=== PATIENT | male | born 1990 | race African-American/Black ===

== ENCOUNTER 2019-01-25 08:35 | Emergency (ER) | payer BC, SELFPAY ==
[2019-01-25] MEDS ORDERED: Ibuprofen 800 MG TAB ONE (09:18)
== END 2019-01-25 09:23 | disposition home or self-care (01) ==
LOC: ERS 08:35
DX: H66.42 Suppurative otitis media, unspecified, left ear (principal); J45.909 Unspecified asthma, uncomplicated; F17.210 Nicotine dependence, cigarettes, uncomplicated
CPT/HCPCS: 99282

== ENCOUNTER 2019-08-07 15:46 | Emergency (ER) | payer BC ==
[2019-08-07] MEDS ORDERED: Amoxicillin/Potassium Clav 875 MG TAB ONE ×2 (16:21→16:22)
== END 2019-08-07 16:28 | disposition home or self-care (01) ==
LOC: ERS 15:46
DX: H66.42 Suppurative otitis media, unspecified, left ear (principal); J45.909 Unspecified asthma, uncomplicated; F17.210 Nicotine dependence, cigarettes, uncomplicated
CPT/HCPCS: 99282

== ENCOUNTER 2020-02-13 11:55 | Emergency (ER) | payer BC | END 2020-02-13 12:23 | disposition home or self-care (01) | LOC: ERS 11:55 | DX: K02.9 Dental caries, unspecified (principal); J45.909 Unspecified asthma, uncomplicated; F17.210 Nicotine dependence, cigarettes, uncomplicated | CPT/HCPCS: 99283 ==